=== PATIENT | female | born 1980 | race Caucasian/White ===

== ENCOUNTER 2016-11-07 12:56 | Emergency (ER) | payer OTHER ==
--- NOTE | 2016-11-07 13:51 | ED CLINICAL REPORT ---
Clinical Report - Phys[facility] [address] [place] [address] 11/07/2016 13:00 Patient: IJEOMA ALBARADO Time Seen: 13:29; initial patient contact, initial documentation, patient care assumed. Arrived- By private vehicle. Historian- patient. HISTORY OF PRESENT ILLNESS Chief Complaint: COUGH and FEVER. This started about 3 days ago and is still present but is better now. The illness is described as moderate. The patient has had a cough, nasal congestion, fever of 103 F, generalized muscle aches and a nasal discharge. She has had scant amounts of thick, yellow, green sputum. No difficulty breathing, chest discomfort or pain, hoarseness or sinus pressure. No sinus drainage or ear pain. She has had a mild sore throat . It has been associated with pain upon swallowing. No difficulty swallowing. (has refills on anti-virals for oral herpes, started taking them the other day, and already feels better, less throat pain, has hx of asthma, but has no inhalers). Additional history - No known contact with a sick individual. No recent travel. Similar symptoms previously: None. Recent medical care: Not recently seen/assessed. REVIEW OF SYSTEMS No headache, vomiting, diarrhea or abdominal pain. All systems otherwise negative, except as recorded above. PAST HISTORY See nurses notes. PROBLEMS: OB History. Problems. Threatened . . Intrauterine . Contusion. Tetanus Status. Immunizations. Heart Murmur. LNMP - Last Normal Menstrual Period. Asthma. --13:20 Senia Ferrari R.N. ADDITIONAL SURGERIES: Adenoidectomy. Cholecystectomy. Oophorectomy. Tonsillectomy. --13:20 Senia Ferrari R.N. SOCIAL HISTORY Never smoker. Occasional alcohol use. History of occasional drug use: marijuana. Not exposed to second-hand smoke at home. No recent travel. Is a local resident. FAMILY HISTORY Negative. ADDITIONAL NOTES The nursing notes have been reviewed with agreement regarding the chief complaint, HPI, ROS, PMH and patient medications and allergies. PHYSICAL EXAM Vital Signs: 11/07/2016 13:11 BP: 125/78. HR: 73. RR: 20. O2 saturation: 99%. Temp: 98.2 F. Have been reviewed as normal and appear to be correct. Appearance: Alert. No acute distress. Eyes: Pupils equal, round and reactive to light. Eyes normal inspection. ENT: Ears normal. Nose normal. Pharynx normal. Uvula midline. Neck: Normal inspection. Neck supple. CVS: Normal heart rate and rhythm. Heart sounds normal. Pulses normal. Respiratory: No respiratory distress. Breath sounds normal. Back: Normal inspection. Skin: Skin warm and dry. Normal skin color. No rash. Normal skin turgor. Extremities: Extremities exhibit normal ROM. No lower extremity edema. Neuro: Oriented X 3. No motor deficit. No sensory deficit. PROGRESS AND PROCEDURES Patient counseled in person regarding the patient's stable condition and diagnosis. 13:50. Differential Diagnosis: Other possible considerations: oral herpes, pharyngitis, flu, uri, allergies, bronchitis, pneumonia, sinustis, viral illness. Above considerations are based on history and physical exam. Differential diagnosis was discussed with patient. Disposition: Discharged home in good and unchanged condition (13:51). Condition: good and stable. CLINICAL IMPRESSION Acute viral rhinitis. No airway obstruction. INSTRUCTIONS Take Tylenol (Acetaminophen) for fever, temperature greater than 101 degrees orally. Take according to label instructions. Drink plenty of fluids for the next 24 hours until better. Warnings: GENERAL WARNINGS: Return or contact your physician immediately if your condition worsens or changes unexpectedly, if not improving as expected, or if other problems arise. Specifically return if problem worsens. Follow-up: Follow up with your doctor in about five days even if well. Call for an appointment. Summary of care provided to patient. Understanding of the discharge instructions verbalized by patient. (Electronically signed by Laura Reyes A.R.N.P. 11/07/2016 14:19)
--- NOTE | 2016-11-07 13:51 | ED NURSING NOTES ---
Clinical Report - [facility] [address] [place] [address] 11/07/2016 13:00 Patient: IJEOMA ALBARADO TRIAGE Triage time 13:Nov 07 2016. Acuity: LEVEL 4. Chief Complaint: FEVER, COUGH, SORE THROAT and BODY ACHES. Alert. --13:20 Senia Ferrari R.N. 13:11 11/07/16. BP: 125/78. HR: 73. RR: 20. O2 saturation: 99%. Temp: 98.2 F. --13:20 Senia Ferrari R.N. Triage time 1311 late entry - PM. --14:03 Amada Bucio R.N. Weight: 90.7 kg stated. Height/Length: 61 inches Per Patient. BMI: 37.8. --13:11 Senia Ferrari R.N. Medications Acyclovir Oral 800 mg, 5 times a day. --13:19 Senia Ferrari R.N. Allergies Macrobid. (hives) --13:17 Senia Ferrari R.N. Penicillins.(Anaphylaxis) --13:18 Senia Ferrari R.N. Tamapaxon. (took for Migraines - "took the meds and went to sleep" was brought to the ER for it. ) --13:18 Senia Ferrari R.N. Medication/allergy information source: the patient. --13:20 Senia Ferrari R.N. History Arrived by private vehicle. Historian: patient. Primary physician (Dr. Olivas). ( Pt here for "flu like symptoms". 3 days. Pt currently on Acyclovir for Tx of Herpes 1 & 2 in throat .). Onset. (3 days). She has had contact with a sick individual. Treatment DIRECTOR [employer]: Took ibuprofen. SOCIAL HX: Never smoker. History of drug use: marijuana. No alcohol use. No infectious disease exposure. FALL RISK ASSESSMENT: Fall risk assessment completed. No fall risk identified. NUTRITIONAL RISK ASSESSMENT: The nutritional risk assessment revealed no deficiencies. FUNCTIONAL ASSESSMENT: Functional assessment: no impairments noted. LEARNING NEEDS ASSESSMENT: The learning needs assessment revealed no barriers. SKIN INTEGRITY ASSESSMENT: Skin integrity risk assessment completed. No skin integrity risk identified. --13:20 Senia Ferrari R.N. PROBLEMS: OB History. Problems. Threatened . . Intrauterine . Contusion. Tetanus Status. Immunizations. Heart Murmur. LNMP - Last Normal Menstrual Period. Asthma. --13:20 Senia Ferrari R.N. ADDITIONAL SURGERIES: Adenoidectomy. Cholecystectomy. Oophorectomy. Tonsillectomy. --13:20 Senia Ferrari R.N. Interventions ID band on patient. To room. --13:20 Senia Ferrari R.N. PHYSICAL ASSESSMENT Ambulatory to room. GENERAL / NEURO / PSYCH: Alert. Oriented X 4. Appears in no acute distress. RESPIRATORY: Respirations not labored. Chest nontender. Breath sounds within normal limits. CVS: Capillary refill less than 2 seconds. Pulses within normal limits. GI / : Abdomen soft and nontender and normal bowel sounds. SKIN: Skin intact. Skin is warm and dry. Normal skin turgor. --13:28 Amada Bucio R.N. NURSING PROGRESS NOTES The initial plan of care for this patient has been created This plan of care was discussed with the patient. Patient gowned. Warming measures: blanket applied. Reassurance given. Patient teaching performed. Flu swab obtained. Two patient identifiers checked. Call light placed in reach. Side rails up. Bed placed in lowest position. Brakes of bed on. Brakes of chair on. --13:29 Amada Bucio R.N. DISPOSITION / DISCHARGE Departure time: 1357 PM. Condition at departure: unchanged and stable. The goals identified in the patient's plan of care were met. Learning barriers present. Discharge instructions provided and reviewed with the patient. She has no diet restrictions. She has no activity restrictions. Patient verbalized understanding. Written instructions provided in Tamazight. ( Pt expressed understanding of discharge instructions). The patient was discharged by the nurse practitioner. She was discharged home and accompanied by family. She left the Emergency Department ambulatory and via private vehicle. Patient driving. FALL RISK ASSESSMENT: Fall risk assessment completed. No fall risk identified. BRITTANIE COMA SCORE: Sherwood Coma Scale: 15- eyes open spontaneously (4); best verbal response- oriented x 4 (5); best motor response- obeys commands (6). --13:59 Amada Bucio R.N. 13:56 11/07/16. BP: 115/48 (regular adult cuff) taken on the right arm, via an automated monitor, while standing. HR: 85. RR: 15. O2 saturation: 99% on room air. Temp: 98.2 F (oral). Pain level now: 0/10. --13:59 Amada Bucio R.N. Locked/Released at 11/07/2016 14:04 by Amada Bucio R.N.
--- NOTE | 2016-11-07 14:19 | ED MED RECONCILIATION SUMMARY ---
Patient: IJEOMA ALBARADO Medication Reconciliation Report [facility] VisitID: [id number] [address] [place] [address] 36y, F Registration Date/Time: 11/07/2016 Weight: 90.7 kg Height/Length: 61 in. BMI: 37.8 ALLERGIES: Macrobid, Penicillins, Tamapaxon The patient's Home Medications are listed below: THE FOLLOWING MEDICATIONS NEED TO BE RECONCILED: Acyclovir Oral 800 mg, 5 times a day The source(s) of the original Home Medication information: patient The following Medications were given to the patient in the Emergency Department: None. The following Medications were prescribed to the patient: None.
--- NOTE | 2016-11-07 14:19 | ED MED RECONCILIATION SUMMARY ---
Patient: IJEOMA ALBARADO Medication Reconciliation Report [facility] VisitID: [id number] [address] [place] [address] 36y, F Registration Date/Time: 11/07/2016 Weight: 90.7 kg Height/Length: 61 in. BMI: 37.8 ALLERGIES: Macrobid, Penicillins, Tamapaxon The patient's Home Medications are listed below: THE FOLLOWING MEDICATIONS NEED TO BE RECONCILED: Acyclovir Oral 800 mg, 5 times a day The source(s) of the original Home Medication information: patient The following Medications were given to the patient in the Emergency Department: None. The following Medications were prescribed to the patient: None.
--- NOTE | 2016-11-07 14:19 | ED MAR SUMMARY ---
..... Medication Administration Record [facility] [address] [place], [place] [id number] Patient: IJEOMA ALBARADO Visit ID: [id number] 36y, F Weight: 90.7 kg Height/Length: 61 in BMI: 37.8 ALLERGIES: Tamapaxon, Penicillins, Macrobid
--- NOTE | 2016-11-07 14:19 | ED MAR SUMMARY ---
..... Medication Administration Record [facility] [address] [place], [place] [id number] Patient: IEJOMA ALBARADO Visit ID: [id number] 36y, F Weight: 90.7 kg Height/Length: 61 in BMI: 37.8 ALLERGIES: Tamapaxon, Penicillins, Macrobid
--- NOTE | 2016-11-07 14:19 | ED DISCHARGE INSTRUCTIONS ---
Patient: IJEOMA ALBARADO General Instructions [facility] VisitID: [id number] [place] [address] 36y, F Registration Date/Time: 11/07/2016 Acute viral rhinitis. No airway obstruction. INSTRUCTIONS Take Tylenol (Acetaminophen) for fever, temperature greater than 101 degrees orally. Take according to label instructions. Drink plenty of fluids for the next 24 hours until better. Warnings: GENERAL WARNINGS: Return or contact your physician immediately if your condition worsens or changes unexpectedly, if not improving as expected, or if other problems arise. Specifically return if problem worsens. Follow-up: Follow up with your doctor in about five days even if well. Call for an appointment. Summary of care provided to patient. Understanding of the discharge instructions verbalized by patient. ADDITIONAL INFORMATION Viral Respiratory Illness [Adult] You have an Upper Respiratory Illness (URI) caused by a virus. This illness is contagious during the first few days. It is spread through the air by coughing and sneezing or by direct contact (touching the sick person and then touching your own eyes, nose or mouth). Most viral illnesses go away within 7-10 days with rest and simple home remedies. Sometimes, the illness may last for several weeks. Antibiotics will not kill a virus and are generally not prescribed for this condition. Home Care: 1) If symptoms are severe, rest at home for the first 2-3 days. When you resume activity, don't let yourself get too tired. 2) Avoid being exposed to cigarette smoke (yours or others). 3) Tylenol (acetaminophen) or ibuprofen (Advil, Motrin) will help fever, muscle aching and headache. (Persons under 18 with fever should not take aspirin since this may cause liver damage.) 4) Your appetite may be poor, so a light diet is fine. Avoid dehydration by drinking 6-8 glasses of fluids per day (water, soft drinks, juices, tea, soup). Extra fluids will help loosen secretions in the nose and lungs. 5) Qpok-sej-tumaxjw cold medicines will not shorten the length of time youre sick, but they may be helpful for the following symptoms: cough (Robitussin DM); sore throat (Chloraseptic lozenges or spray); nasal and sinus congestion (Actifed, Sudafed, Chlortrimeton). Follow Up with your doctor or as advised if you dont improve over the next week. Get Prompt Medical Attention if any of the following occur: -- Cough with lots of colored sputum (mucus) or blood in your sputum -- Chest pain, shortness of breath, wheezing or have trouble breathing -- Severe headache; face, neck or ear pain -- Fever over 100.4 F (38.0 C) for more than three days -- You cant swallow due to throat pain Fever Control (Adult) A fever is a natural reaction of the body to an illness. In most cases, the temperature itself is not harmful. It actually helps the body fight infections. A fever does not need to be treated unless you feel very uncomfortable. Home Care If you feel warm, check your temperature. If you feel very uncomfortable and your temperature is at or higher than 100.4F (38C) oral, you may take acetaminophen (Tylenol) every 4 to 6 hours. If you cant take or keep down oral medicine, ask your pharmacist for Tylenol suppositories, which you can get without a prescription. If the fever does not respond to acetaminophen within 1 hour, take ibuprofen (Advil or Motrin). If this works, keep taking the ibuprofen every 6 to 8 hours. Note: If you have chronic liver or kidney disease or ever had a stomach ulcer or GI bleeding, talk with your doctor before using these medications. If either medication alone does not keep the fever down, you may alternate the two medicines every 3 to 4 hours, only if your healthcare provider has instructed you to do so. For example, take Motrin then wait 3 hours, take Tylenol then wait 3 hours, take Motrin, and so on. Follow your healthcare providers instructions exactly. Clothing: Keep clothing light because excess body heat is lost through the skin. The fever will go up if you wear extra layers or wrap in blankets. Fluids: Fever causes the body to lose water through evaporation. Drink plenty of fluids such as water, juice, clear sodas, lucia kishore, or lemonade. Do not use aspirin in anyone under 18 years of age who is ill with a fever. It can cause severe liver damage. Follow Up with your doctor or as advised by our staff if you do not get better after 48 hours. Get Prompt Medical Attention if any of the following occur: Fever does not get better after taking fever medication Fast or difficult breathing Earache, sinus pain, stiff or painful neck, headache, repeated diarrhea or vomiting You feel unusually irritable, drowsy, or confused A rash appears You feel weak or dizzy, or that you might faint You have been given the following additional information: Uri, Viral, No Abx (Adult) Fever Control (Adult) (Electronically signed by Laura Reyes A.R.N.P. 11/07/2016 14:19)
== END 2016-11-07 13:57 | disposition home or self-care (01) ==
LOC: ED SRH 12:56
DX: J00 Acute nasopharyngitis [common cold] (principal); B97.89 Other viral agents as the cause of diseases classified elsewhere